=== PATIENT | female | born 1970 | race Caucasian/White ===

== ENCOUNTER → 2017-03-26 | Outpatient (CLI) | payer MEDICAID ==
[~2017-03-26] MED LIST: AMOX500C2 PO; ARIP15TA; ARIP15TA2; ARPZ10T; AZIT-21 PO; BECL25SP INH; BENZ100C18 PO; BENZ200C25 PO; BUDE6HFA; BUTA1TAB55 PO; BYETTA; CEFP500T4 PO; CLAR-19 PO; CPR500T PO; CYCL10TA9 PO; CYMBALTA; DULO30CA; DULO60CA6; ERT250T; ESZO3TAB30; EXEN10PE4; EZET10TA5; FENO145T; FENO145T2; FLC150T PO; FLUT1DIS26; FLUT1DIS3; GLBR5T; GLYB5TAB3; GLYBURIDE; HYDR-2997 PO; HYDR-34; HYDR100C2; HYDR1CAP2 PO; HYDR25CA5; IBP800T PO; INSU100I14; LEVAMIR SQ; LISI2.5T; LISI2.5T56; LISI5TAB; LISI5TAB14; LORA0.5T; LORA0.5T PO; LUNESTA; MELA1TAB; MELOTONIN; METO5TAB2; MIRT30TA; MIRT30TA19; NF-CODDM PO; NF-CYM60C; NF-XOP-HFA; OMEP-10; OMG1KC; PRCD5U PO; PRD20T PO; PROC10TA23; RAME8T; RAME8TAB; ROPI0.5T; ROSU20TA14 PO; RT-ALBUTEROL SULF 2.5 MG/3 ML PRE-MIX VIAL IH ONE; SIMV5TAB6 PO; SITA100T; SITA100T PO; SLMFT1E INH; SMV10T; SMV20T; TOPI100T; TPR100T; TRM50T; ULTRAM; VISTARIL; ZOCOR; [UNRECOGNIZED DRUG - OTHER]; [UNRECOGNIZED DRUG - OTHER]
== END ==
LOC: RT 11:23
PROVIDERS: ATTEND Nurse Practitioner Family
DX: R06.00 Dyspnea, unspecified (principal); F17.200 Nicotine dependence, unspecified, uncomplicated; J30.9 Allergic rhinitis, unspecified
CPT/HCPCS: 94060; 94640; 94726; 94729